=== PATIENT | male | born 1995 | race Caucasian/White ===

== ENCOUNTER → 2017-02-11 | Outpatient (CLI) | payer OTHER ==
--- NOTE | 2017-02-11 13:32 | DIAGNOSTIC IMAGING REPORT ---
ULTRASOUND L VENOUS DOPP LOWER EXT UNILAT CLINICAL HISTORY: Left leg pain COMPARISON STUDY: No previous studies for comparison. FINDINGS: Real-time and color flow Doppler imaging were performed. Flow was seen within the femoral, popliteal and calf veins with no intraluminal thrombus demonstrated. The saphenous vein is patent. IMPRESSION: No evidence of left lower extremity DVT Electronically signed by: Ziggy Anderson M.D. 02/11/2017 1:30 PM Dictated Date/Time: 02/11/2017 1:30 PM
== END | disposition home or self-care (01) ==
LOC: C.ULTRBC 12:43
PROVIDERS: ATTEND Physician Assistant Medical
DX: M79.605 Pain in left leg (principal)